=== PATIENT | female | born 1995 | race Caucasian/White ===

== ENCOUNTER 2017-07-27 04:51 | Inpatient (IN) | payer OTHER ==
[~2017-07-27] VITALS: Ht 157.5 cm; Wt 104.3 kg
[2017-07-27 06:14] LABS: ABSOLUTE BASOPHIL COUNT 0 /CUMM (0.0-0.2); ABSOLUTE EOSINOPHIL COUNT 0.1 /CUMM (0.0-0.7); ABSOLUTE GRANULOCYTE CT 6.4 /CUMM (1.4-6.5); ABSOLUTE LYMPH COUNT 1.5 /CUMM (1.2-3.4); ABSOLUTE MONOCYTE COUNT 0.8 /CUMM (0.10-0.60); BASOPHIL % 0.2 % (0.0-2.0); EOSINOPHIL % 1.1 % (0-5); GRANULOCYTE % 72.2 % (42.2-75.2); HEMATOCRIT 34.6 % (37-47); MEAN CORPUSCULAR HGB 27.9 PG (27.0-31.0); MEAN CORPUSCULAR HGB CONC 33.1 G/DL (33.0-37.0); MEAN CORPUSCULAR VOLUME 84.1 FL (81.0-99.0); MEAN PLATELET VOLUME 8.8 FL (7.4-10.4); PLATELET COUNT 190 /CUMM (130-400); RED BLOOD CELL CT 4.11 /CUMM (4.20-5.40); WHITE BLOOD CELL COUNT 8.9 /CUMM (4.8-10.8)
[2017-07-27 06:28] VITALS: BP 130/80
--- NOTE | 2017-07-27 09:29 | History & Physical ---
General Information and HPI Allergies/Medications Allergies: Coded Allergies: No Known Allergies (07/27/17) Past Family/Social History Psychosocial History Smoking Status: Never Smoked
--- NOTE | 2017-07-27 09:47 | History & Physical ---
General Information and HPI MD Statement: I have seen and personally examined ALISON RAMÍREZ and documented this H&P. The patient is a 21 year old female at 40 weeks and 0 days gestation who presented with a chief complaint of ROM clear fluid +FM -VB rare uc's. Source of Information: patient, old records Exam Limitations: no limitations History of Present Illness: well known to our practice ROM clear 440 AM. 57#weight gain low risk shoulder screen Allergies/Medications Allergies: Coded Allergies: No Known Allergies (07/27/17) Compliance With Home Meds: GOOD Past History claim clerk History : 1 Para: 0 Last Menstrual Period: 10/20/2016 Estimated Delivery Date: 07/27/2017 Past claim clerk History: none Surgical History Pertinent Surgical History: none Past Family/Social History Psychosocial History Smoking Status: Never Smoked Review of Systems Review of Systems Constitutional: Denies: chills, fever. EENTM: Denies: blurred vision, double vision, visual changes. Cardiovascular: Denies: chest pain. Respiratory: Denies: cough. GI: Denies: diarrhea, nausea, vomiting. Neurological/Psychological: Denies: anxiety, depressed. Exam & Diagnostic Data Last 24 Hrs of Vital Signs/I&O vss Vital Signs Date Time Temp Pulse Resp B/P B/P Pulse O2 O2 Flow FiO2 Mean Ox Delivery Rate 07/27 0628 130/80 Intake & Output 07/27 1600 07/27 0800 07/27 0000 Intake Total Output Total Balance Patient 230 lb Weight Obstetric Exam Wgt Gained During : 57lbs Pelvimetry: seems adequate Dilation (cm): 2 Effacement (%): 90 Station: -2 Membranes: unknown Fluid: clear Fundal Height (cm): 40 Multiple Gestation? No Contractions: Q 5min Infant #1 - FHR Baseline: 144 Category: 1 Estimated Weight: 3500G Presentation: vtx Patient for Induction? No Physical Exam General Appearance Alert, Oriented X3, Cooperative, No Acute Distress Skin No Rashes HEENT Atraumatic Neck Supple Cardiovascular Regular Rate Lungs Clear to Auscultation Abdomen Soft, No Tenderness Neurological Normal Gait, Normal Speech, Strength at 5/5 X4 Ext Labs Blood Type & Rh: O POS Antibody Screen: neg Hct/Hgb & Platelets #1: 39.5/12.7/225 Hct/Hgb & Platelets #2: 36/11.4/196 Rubella: imm VDRL #1: nr VDRL #2: nr HbsAg: neg HIV #1: nr HIV #2 nr 1 Hr P Group B Strep: neg Initial Ultrasound: 12/28/2016 Anatomy Ultrasound: 03/15/2017 normal Genetic Testing: CF and CffDNA normal, MSAFP neg Last 24 Hrs of Labs/Sherif: Laboratory Tests 07/27/17 0550: CBC w Diff NO MAN DIFF REQ, RBC 4.11 L, MCV 84.1, MCH 27.9, MCHC 33.1, RDW 13.0 , MPV 8.8, Gran % 72.2, Lymphocytes % 17.0 L, Monocytes % 9.5 H, Eosinophils % 1.1, Basophils % 0.2, Absolute Granulocytes 6.4, Absolute Lymphocytes 1.5, Absolute Monocytes 0.8 H, Absolute Eosinophils 0.1, Absolute Basophils 0, Urinalysis LIGHT H, Urine Color YEL, Urine Clarity CLDY H, Urine pH 6.0, Ur Specific [place] 1.020, Urine Protein TRACE H, Urine Ketones NEG, Urine Nitrite NEG, Urine Bilirubin NEG, Urine Urobilinogen 0.2, Ur Leukocyte Esterase SMALL H , Ur Microscopic SEDIMENT EXAMINED, Urine RBC 15-25 H, Urine WBC 10-15 H, Ur Epithelial Cells MANY H, Urine Bacteria MANY H, Urine Mucus MOD H, Urine Hemoglobin LARGE H, Urine Glucose NEG 07/27/17 0503: Membrane Rupture POSITIVE Assessment/Plan Assessment/Plan: IUP at Term SROM Clear GBS Negative plan pitocin augmentation of labor As Ranked By This Provider Problem List: 1. Normal labor 2. Core Measures Venous Thromboembolism VTE Risk Factors / No Mechanical VTE Prophylaxis d/t Early Ambulation No VTE Pharm Prophylaxis d/t LowRisk-No Interven Req'd Attending MD Review Statement Attending Statement Attending MD Statement: examined this patient, discussed with family, discussed w/nursing
--- NOTE | 2017-07-27 22:41 | Labor & Delivery Summary ---
Delivery Summary Vaginal Delivery: Vaginal: vertex Episiotomy/Lacerations: Episiotomy/Lacerations: first degree laceration Type: midline Repair: 3-0 polysorb Anesthesia: 8cc nessicaine Placenta: Placenta: spontanteous, normal, 3 vessel Anesthesia: block Additional Comments: pushed 15 minutes with good epidural
[2017-07-28 08:32] LABS: ABSOLUTE BASOPHIL COUNT 0 /CUMM (0.0-0.2); ABSOLUTE EOSINOPHIL COUNT 0 /CUMM (0.0-0.7); ABSOLUTE GRANULOCYTE CT 11.6 /CUMM (1.4-6.5); BASOPHIL % 0.2 % (0.0-2.0); MEAN CORPUSCULAR HGB 28.4 PG (27.0-31.0); MEAN CORPUSCULAR HGB CONC 34.3 G/DL (33.0-37.0)
[2017-07-28 08:59] LABS: ABSOLUTE LYMPH COUNT 1.6 /CUMM (1.2-3.4); ABSOLUTE MONOCYTE COUNT 1.3 /CUMM (0.10-0.60); EOSINOPHIL % 0 % (0-5); GRANULOCYTE % 79.6 % (42.2-75.2); HEMATOCRIT 30.4 % (37-47); MEAN CORPUSCULAR VOLUME 82.8 FL (81.0-99.0); MEAN PLATELET VOLUME 8.6 FL (7.4-10.4); PLATELET COUNT 186 /CUMM (130-400); RBC DISTRIBUTION WIDTH 13.1 % (11.5-14.5); RED BLOOD CELL CT 3.68 /CUMM (4.20-5.40)
[2017-07-28 09:02] LABS: WHITE BLOOD CELL COUNT 14.6 /CUMM (4.8-10.8)
--- NOTE | 2017-07-28 09:38 | PN- Post Delivery/GYN ---
Subjective Subjective: doing well, no complaints. tolerate diet, void without difficulties. Review of Systems Constitutional: Reports: no symptoms. Cardiovascular: Reports: no symptoms. Respiratory: Reports: no symptoms. Gastrointestinal: Reports: no symptoms. Genitourinary: Reports: no symptoms. Musculoskeletal: Reports: no symptoms. All Other Systems: Reviewed and Negative Objective Last 24 Hrs of Vital Signs/I&O Vital Signs Date Time Temp Pulse Resp B/P B/P Pulse O2 O2 Flow FiO2 Mean Ox Delivery Rate 07/28 0015 38.3 Physical Exam: VSS CV RRR lungs CTA B/L Abdomen: soft, nontender, uterus firm, fundus below umbilicus, lochia mild EXT: DCT(-) Current Medications: Current Medications Sig/Pallavi Start time Last Medication Dose Route Stop Time Status Admin Acetaminophen 1,000 MG ONCE ONE 07/28 0130 DC 07/28 IV 07/28 0131 0015 Acetaminophen 1,000 MG .STK-MED ONE 07/27 2333 DC IV 07/27 2334 Acetaminophen 650 MG Q4P PRN 07/27 2245 AC PO Acetazolamide 1,000 MG ONCE ONE 07/28 0000 CAN Sodium Chloride 50 ML IV 07/28 0032 Butorphanol Tartrate 1 MG Q4P PRN 07/27 0545 DC 07/27 IV 1544 Butorphanol Tartrate 1 MG Q4P PRN 07/27 0545 DC 07/27 IM 1547 Chloroprocaine HCl 30 ML ONCE ONE 07/27 2245 DC 07/27 SC 07/27 2246 2216 Docusate Sodium 100 MG BID PRN 07/27 2245 AC PO Ephedrine 5 MG .Q5MIN PRN 07/27 1920 DC IV 07/28 1919 Hydroxyzine HCl 50 MG AT BEDTIME NEED.. 07/27 2245 AC PO Ibuprofen 800 MG Q6P PRN 07/27 2245 AC 07/28 PO 0822 Lactated Ringer's 1,000 ML Q8H 07/27 0545 DC 07/27 IV 1828 Magnesium Hydroxide 30 ML DAILY PRN 07/27 2245 AC PO Oxytocin 20 UNITS Q5H 07/27 2245 DC 07/27 Lactated Ringer's 1,000 ML IV 07/28 0344 2220 Oxytocin 500 UNITS .STK-MED ONE 07/27 1745 DC IV 07/27 1746 Oxytocin 30 UNITS PER PROTOCL 07/27 0900 DC 07/27 Lactated Ringer's 500 ML IV 0904 Last 24 Hrs of Labs/Sherif: Laboratory Tests 07/28/17 0806: CBC w Diff NO MAN DIFF REQ, RBC 3.68 L, MCV 82.8, MCH 28.4, MCHC 34.3, RDW 13.1 , MPV 8.6, Gran % 79.6 H, Lymphocytes % 11.3 L, Monocytes % 8.9, Eosinophils % 0, Basophils % 0.2, Absolute Granulocytes 11.6 H, Absolute Lymphocytes 1.6, Absolute Monocytes 1.3 H, Absolute Eosinophils 0, Absolute Basophils 0 Microbiology 07/27 1914 URINE ROUT: Urine Culture - RES Assessment/Plan Assessment/Plan 21yo, s/p , PPD#1 1. encourage ambulation and 2. RT PP care 3. plan discharge AM Attending MD Review Statement Attending Statement Attending MD Statement: examined this patient, discussed with nursing
[2017-07-28] MEDS ORDERED: IBUPROFEN800 M1 PO (12:03)
== END 2017-07-29 11:01 | DRG 775 ==
LOC: CBCO 04:51 → GNO 05:31
PROVIDERS: Obstetrics & Gynecology
PROC: 0HQ9XZZ Repair Perineum Skin, External Approach (ICD-10-PCS; principal; 2017-07-27)
PROC: 10E0XZZ Delivery of Products of Conception, External Approach (ICD-10-PCS; principal; 2017-07-27)
DX: O70.0 First degree perineal laceration during delivery (principal); Z3A.40 40 weeks gestation of pregnancy; Z37.0 Single live birth
CPT/HCPCS: GNOP; GNOS; 36415; 81001; 84112; 87086; J0131; J7120